=== PATIENT | male | born 1960 | race Caucasian/White ===

== ENCOUNTER 2021-06-08 11:00 | Day surgery (SDC) | payer BC, SELFPAY ==
--- NOTE | 2021-06-07 15:52 | EKG12_ITS ---
Test Reason : PREOP Blood Pressure : / mmHG Vent. Rate : 059 BPM Atrial Rate : 059 BPM P-R Int : 146 ms QRS Dur : 092 ms QT Int : 422 ms P-R-T Axes : 001 013 044 degrees QTc Int : 417 ms Sinus bradycardia Otherwise normal ECG No previous ECGs available Confirmed by FABIO TORRES, CHRISTIANO ([id number]), science editor ANG MOSS ([id number]) on 06/10/2021 2:24:11 P M Referred By: Arnulfo Newell Confirmed By:PAULA MCCARTHY MD
[2021-06-08] MEDS: Lactated Ringers 1,000 ML 15 ML IV (11:05)
[2021-06-08 11:32] VITALS: BP 136/73; PULSE 66; RESP 16; TEMP 35.9; O2SAT 96; BMI 28.5
--- NOTE | 2021-06-08 13:05 | PROS_PTH ---
PATIENT: CRYSTAL TEAGUE LOC: [facility] [place] U#:[id number] AGE/SX: 60/M ROOM: RE06/08/[address]: Dr. Arnulfo Newell MD : 1960 BED: DIS: 06/08/2021 SPEC #: [id number] RECD: 06/08/21 15:39 STATUS: MICHAEL BENNETT #: [id number] TAMARA: 06/08/21 13:[address]: Arnulfo Newell DEPT: SURGICAL PATHOLOGY RECD BY: Mona Parsons ENTERED: 06/09/21 08:34 SP TYPE: TURP OTHR DR: Dr. Theo Leon MD Tissues: Prostate, NOS Procedures: Surgery Specimen Level IV HEADER OPERATION: Cysto, TUR prostate, Olymp[employer] PRE-OP DIAGNOSIS: BPH TISSUE SUBMITTED: Prostate chips MICROSCOPIC DIAGNOSIS Prostate, transurethral resection: Benign nodular hyperplasia, glandular and stromal types. Chronic inflammation with focal acute inflammation. AM:vitaliy 06/10/2021 MICROSCOPIC DESCRIPTION Slides are reviewed. GROSS DESCRIPTION Received is one container labeled with the patient's name and designated prostate tissue. The specimen consists of multiple irregular fragments of pink-dowd, rubbery, soft tissue that in aggregate weigh 3.2 gm and measure in aggregate 3 x 2.5 x 1 cm. The entire specimen is submitted in four cassettes. / SJ:vitaliy 06/09/21 TC:3 CPT: 89435
[2021-06-08] MEDS: Cefazolin 2 GM in 0.9% Normal Saline 100 ML IV (14:00)
--- NOTE | 2021-06-08 14:44 | HP.PCM_ITS ---
HPI - General HPI Narrative CRYSTAL TEAGUE, is a 60 M who presents transurethral resection of the prostate because of incomplete bladder emptying and bladder atony [facility] Medical History (Updated 06/01/21 @ 10:53 by Odessa Flowers) History of edema Hypertension Kidney stone Non-smoker Restless legs Wears glasses Home Medications lisinopril 10 mg PO DAILY 06/01/21 [History Last Taken 06/08/21] simvastatin 20 mg PO DAILY 06/01/21 [History Last Taken Unknown] tamsulosin 0.4 mg PO DAILY 06/01/21 [History Last Taken Unknown] ciprofloxacin HCl [Cipro] 500 mg PO BID #10 tab 06/08/21 [Rx Last Taken Unknown] Allergy/AdvReac Type Severity Reaction Status Date / Time Iodinated Contrast Media Allergy Swelling Verified 06/08/21 11:03 [DYEE] Surgical History (Updated 06/01/21 @ 10:53 by Odessa Flowers) Hx of colonoscopy Social History Smoking Status: Never smoker Vital Signs Vital Signs Vital Signs: 06/08/21 11:32 Temperature 96.6 F L Temperature Source Temporal Pulse Rate 66 Respiratory Rate 16 Respiratory Pattern Normal Blood Pressure 136/73 H Blood Pressure Mean 94 Blood Pressure Source Monitor Blood Pressure Position Semi-Fowlers Blood Pressure Location Right Arm Pulse Ox 96 Oxygen Delivery Method Room Air Weight Weight: 101 kg Body Mass Index (BMI) 28.5 Results Lab / Micro Data Micro: Microbiology 06/07/21 16:00 Interface Orders SARS-CoV-2 Antigen (Rapid) - Final
--- NOTE | 2021-06-08 14:45 | OP.PCM_ITS ---
Report of Operation Date of Procedure: 06/08/21 Pre-Operative Diagnosis: bph with obstruction, incomplete bladder empting, blad kristin atony Post-Operative Diagnosis: same Surgery/Procedure Performed:: turp Description of Surgical Findings:: In the preoperative setting I discussed with the patient how the surgery would be done with expect afterwards. We discussed how a prostate resection is done and we discussed the risk of the surgery including, bleeding, infection, retrograde ejaculation, changes with ejaculation or intercourse,. We discussed the possibility that the resection of the prostate may not alleviate his urinary symptoms. We discussed the small risk of developing scar tissue along the urethral channel and strictures. We also discussed the chance of the prostate could grow back and he may need further surgery or treatment in the future for prostate problems. Patient was taken back to the operating room, timeout procedure was performed, he was identified and marked and placed on the operating room table. He un derwent general anesthesia. He was placed in dorsolithotomy position. Penis and testicles were prepped and draped in usual sterile fashion. Went into the bladder using the visual obturator with a resectoscope. Once inside the bladder identified the right and left ureteral orifice. I then identified the prostate and the anatomy of the prostate. I marked out the area of the sphincter and the verumontanum was identified. I then proceeded with the prostate resection first resected the median lobe. And then resected the right lobe of the prostate. Then to resect the left lobe of the prostate. I then resected the apical tissue of the prostate. This was a complete resection of all obstructive tissue. I then made sure that there was no injury to the sphincter or the verumontanum was stil l intact. At the end of the resection all the chips were Ellik out of the bladder. I then identified the left and right ureteral orifice and these were confirmed to be in good position and effluxing and not injured. The resectoscope was removed, a 22 Hungarian catheter was placed into the bladder on continuous irrigation. And the urine was fairly light pink color and draining normally. He was taken back to the PACU in good condition. CPT 78928 Surgeon: yifan Type of Anesthesia: General Drains: 20 fr murray Admit VTE Documentation VTE Present on Admission: No VTE Mechan Device Prophylaxis: SCD's VTE Pharm Prophylaxis ordered?: No
--- NOTE | 2021-06-08 14:45 | PCM.DC ---
Discharge Instructions Diet Discharge Diet: No restrictions Activity Discharge Activity: May Not Drive (while taking narcotic pain medications.) Dressing / Incision Call your doctor if you observe: Fever of 101 or Higher Catheter: Murray to leg bag and Murray to large bag Drain: Elizabeth Additional Dressing/Incision Instructions:: remove murray in three days Follow Up Care Please Follow Up With: Arnulfo Newell MD When: Call [phone] for an appointment Test Results: Test results from this visit will be discussed in further detail at your follow-up appointment, if applicable. Discharge Plan Admission Primary Reason for Your Visit: tur Attending Provider: Arnulfo Newell Primary Care Provider: Theo Leon Instructions Patient Instructions: TUR Home Recovery Discharge Orders/Prescriptions Prescriptions: New ciprofloxacin HCl [Cipro] 500 mg tablet 500 mg PO BID Qty: 10 RF: 0 Continued tamsulosin 0.4 mg Capsule 0.4 mg PO DAILY RF: 0 simvastatin 20 mg Tablet 20 mg PO DAILY RF: 0 lisinopril 10 mg Tablet 10 mg PO DAILY RF: 0 Referrals / Follow Up: Arnulfo Newell MD [STAFF PHYSICIAN] - Theo Leon MD [Primary Care Provider] - Disposition Disposition (needs filled in before D/C Order can be placed): Home, Self Care
[2021-06-08 14:57] VITALS: BP 111/85; BP 136/73; PULSE 60; RESP 16; TEMP 36.2; O2SAT 93
[2021-06-08 15:15] VITALS: BP 109/73; BP 136/73; PULSE 59; RESP 16; O2SAT 92
[2021-06-08 15:30] VITALS: BP 113/75; BP 136/73; PULSE 62; RESP 16; O2SAT 93
[2021-06-08 15:48] VITALS: BP 113/78; BP 136/73; PULSE 62; RESP 16; TEMP 36.1; O2SAT 94
[2021-06-08 16:30] VITALS: BP 136/73
== END 2021-06-08 16:31 | disposition home or self-care (01) ==
LOC: SDC 11:04 → AC 11:04
PROVIDERS: PCP Family Medicine; Referring Provider Urology; Visit Provider Urology
PROC: (CPT 52601; principal; 2021-06-08 12:55)
DX: N41.0 Acute prostatitis (principal); N41.1 Chronic prostatitis; N40.1 Benign prostatic hyperplasia with lower urinary tract symptoms; R39.14 Feeling of incomplete bladder emptying; N31.2 Flaccid neuropathic bladder, not elsewhere classified; N13.8 Other obstructive and reflux uropathy; R33.8 Other retention of urine; R39.12 Poor urinary stream; R97.20 Elevated prostate specific antigen [PSA]; N32.89 Other specified disorders of bladder; Z20.822 Contact with and (suspected) exposure to COVID-19; I10 Essential (primary) hypertension; G25.81 Restless legs syndrome; Z79.899 Other long term (current) drug therapy
CPT/HCPCS: 00914; 52601; 87426; 88305; 93005; J7120; J2405

== ENCOUNTER 2021-10-04 16:35 | Outpatient (CLI) | payer BC, SELFPAY | END 2021-10-04 23:59 | disposition home or self-care (01) | LOC: LABSPEC 16:36 | PROVIDERS: PCP Family Medicine; Visit Provider Urology | DX: R31.21 Asymptomatic microscopic hematuria (principal) | CPT/HCPCS: 87077; 87086; 87088; 87186 ==

== ENCOUNTER → 2024-09-01 | Outpatient (CLI) | payer BC, SELFPAY ==
[2024-09-01 17:15] LABS: PSA,Total - Annual Screen 1.92 ng/mL (0.00-4.00)
== END | disposition home or self-care (01) ==
PROVIDERS: PCP Family Medicine; Referring Provider Urology; Visit Provider Urology
DX: N40.1 Benign prostatic hyperplasia with lower urinary tract symptoms (principal)
CPT/HCPCS: 36415; 84153; G0103